=== PATIENT | female | born 1930 | race Caucasian/White ===

== ENCOUNTER 2019-09-07 21:26 | Emergency (ER) | payer OTHER ==
[~2019-09-07] VITALS: Ht 121.9 cm; Wt 63.5 kg
[~2019-09-07 21:26] MED LIST: SYNTHROID50 MCG; VASOTEC5 MG
[2019-09-07] MEDS ORDERED: COZAAR25 MG (21:44)
[2019-09-07] MEDS ORDERED: TUSNEL LIQUID178 ML PO (23:55)
[2019-09-07] MEDS ORDERED: ZITHROMAX500 MG PO (23:55)
== END 2019-09-07 23:54 | disposition home or self-care (01) ==
LOC: ER 21:26
DX: B34.9 Viral infection, unspecified (principal)

== ENCOUNTER 2021-07-06 17:44 | Emergency (ER) | payer OTHER ==
[~2021-07-06] VITALS: Ht 149.9 cm; Wt 64.0 kg
[~2021-07-06 17:44] MED LIST changes: +COZAAR25 MG; +TUSNEL LIQUID178 ML PO; +ZITHROMAX500 MG PO
[2021-07-06] MEDS ORDERED: AMLODIPINE BESYL5 MG (18:18)
[2021-07-06] MEDS ORDERED: RANEXA500 MG (18:19)
[2021-07-06] MEDS ORDERED: TOPROL XL50 MG (18:19)
[2021-07-06] MEDS ORDERED: PLAVIX75 MG (18:20)
[2021-07-06] MEDS ORDERED: SIMVASTATIN5 MG PO (18:20)
[2021-07-06] MEDS ORDERED: ISOSORBIDE MONO60 MG (18:20)
[2021-07-06] MEDS ORDERED: GRALISE600 MG PO (18:20)
[2021-07-06] MEDS ORDERED: PERCOCET 5-3251 EACH PO (20:45)
[2021-07-06] MEDS ORDERED: MEDROLPACK PO (20:45)
== END 2021-07-06 20:58 | disposition home or self-care (01) ==
LOC: ER 17:44
DX: M17.11 Unilateral primary osteoarthritis, right knee (principal); M51.37 Other intervertebral disc degeneration, lumbosacral region; M25.561 Pain in right knee; M79.651 Pain in right thigh; M54.59 Other low back pain